=== PATIENT | male | born 1980 | race Caucasian/White ===

== ENCOUNTER 2023-08-26 18:05 | Observation (INO) | payer OTHER ==
[~2023-08-26] VITALS: Ht 190.5 cm; Wt 145.1 kg
[2023-08-26 18:44] VITALS: BP 149/98; PULSE 94; RESP 20; TEMP 98; O2SAT 98
[2023-08-26] MEDS ORDERED: FUROSEMIDE 40 MG/4 ML VIAL IVP ONE ×2 (19:55→23:35)
[2023-08-26 20:43] LABS: BASOPHILS % (AUTO) 0.3 % (0.0-2.0); EOSINOPHILS # (AUTO) 0.1 K/uL (0-0.4); EOSINOPHILS % (AUTO) 1.5 % (0.0-4.0); HEMATOCRIT 35.9 % (36-52); HEMOGLOBIN 11.6 g/dL (12.0-18.0); LYMPHOCYTES # (AUTO) 1.9 K/uL (2.0-11.5); LYMPHOCYTES % (AUTO) 25.8 % (20.5-51.1); MEAN CORPUSCULAR HEMOGLOBIN 32 pg (27-31); MEAN CORPUSCULAR HGB CONC 32 g/dL (33-37); MEAN CORPUSCULAR VOLUME 97.7 fL (80-94); MONOCYTES # (AUTO) 0.6 K/uL (0.8-1.0); MONOCYTES % (AUTO) 7.9 % (1.7-9.3); NEUTROPHILS # (AUTO) 4.9 K/uL (1.8-7.7); NEUTROPHILS % (AUTO) 64.5 % (42.2-75.2); PLATELET COUNT (AUTO) 270 K/uL (140-450); RED BLOOD CELL COUNT(AUTO) 3.68 MIL/uL (4.20-6.10); RED CELL DISTRIBUTION WIDTH 16.3 % (11.6-13.7); WHITE BLOOD COUNT (AUTO) 7.6 K/uL (4.8-10.8)
[2023-08-26 20:58] LABS: ALBUMIN 2.9 g/dL (3.4-5.0); ANION GAP 8.1 (8-16); CALCIUM 8.5 mg/dL (8.5-10.1); CARBON DIOXIDE 31.6 mmol/L (21-32); CREATININE 1.5 mg/dL (0.6-1.3); POTASSIUM 3.7 mmol/L (3.5-5.1); TOTAL BILIRUBIN 0.7 mg/dL (0.0-1.0)
[2023-08-26 21:23] LABS: INR 1.11 (0.8-1.2); PARTIAL THROMBOPLASTIN TIME 23.6 secs (22-35.6)
[2023-08-26 21:26] LABS: PROTHROMBIN TIME 11.6 secs (10.8-13.4)
[2023-08-26 22:58] LABS: BLOOD GAS BASE EXCESS 2.4 mmol/L (-2.0-2.0); BLOOD GAS HCO3 26.4 mmol/L (22-26); BLOOD GAS PCO2 38.9 mmHg (35-45); BLOOD GAS PO2 70.9 mmHg (75-100)
[2023-08-26 22:59] LABS: BLOOD GAS O2 SAT% 93.4 % (92.0-98.5)
[2023-08-27] VITALS (7 sets, daily range): BP systolic 139–150; BP diastolic 97–102; PULSE 85–111; RESP 18–22; TEMP 96.7–97.7; O2SAT 90–100
[2023-08-27] MEDS ORDERED: ZOLPIDEM 5 MG TAB PO PRN (02:20)
[2023-08-27] MEDS ORDERED: ONDANSETRON 4 MG/2 ML VIAL IVP PRN (02:20)
[2023-08-27] MEDS ORDERED: HYDROcodone/APAP 5/325 MG 1 TAB TAB PO PRN (02:20)
[2023-08-27] MEDS ORDERED: POTASSIUM CHLORIDE 10 MEQ TABER PO PRN (02:20)
[2023-08-27] MEDS ORDERED: LORazepam 1 MG TAB PO PRN (02:20)
[2023-08-27] MEDS ORDERED: MAG SULF 2000 MG/WATER PREMIX 50 ML IV PRN (02:20)
[2023-08-27] MEDS ORDERED: MORPHINE SULFATE 4 MG/ML SYR IVP PRN (02:20)
[2023-08-27] MEDS ORDERED: KCL 20 MEQ IN 100 mL PREMIX 200 ML IV PRN (02:20)
[2023-08-27] MEDS ORDERED: ACETAMINOPHEN 325 MG TAB PO PRN (02:20)
[2023-08-27] MEDS ORDERED: FUROSEMIDE 40 MG/4 ML VIAL IVP SCH (09:00)
[2023-08-27] MEDS: FUROSEMIDE 40 MG/4 ML VIAL IVP SCH ×2 (09:53→21:58)
[2023-08-27] MEDS ORDERED: hydrALAZINE 20 MG/ML VIAL IVP PRN (10:30)
[2023-08-27] MEDS: hydrALAZINE 25 MG TAB PO SCH ×2 (14:52→21:20)
[2023-08-28] VITALS: BP 144/101; PULSE 92; PULSE 98; RESP 18; TEMP 97.5; O2SAT 93
[2023-08-28 04:00] VITALS: BP 140/98; PULSE 122; PULSE 95; RESP 17; TEMP 98.5; O2SAT 95
[2023-08-28] MEDS: hydrALAZINE 25 MG TAB PO SCH ×3 (05:14→20:40)
[2023-08-28 06:49] LABS: BASOPHILS % (AUTO) 0.6 % (0.0-2.0); EOSINOPHILS # (AUTO) 0.1 K/uL (0-0.4); EOSINOPHILS % (AUTO) 2.3 % (0.0-4.0); HEMATOCRIT 39.4 % (36-52); HEMOGLOBIN 12.9 g/dL (12.0-18.0); LYMPHOCYTES # (AUTO) 1.6 K/uL (2.0-11.5); LYMPHOCYTES % (AUTO) 24.2 % (20.5-51.1); MEAN CORPUSCULAR HEMOGLOBIN 31 pg (27-31); MEAN CORPUSCULAR HGB CONC 33 g/dL (33-37); MEAN CORPUSCULAR VOLUME 96.1 fL (80-94); MONOCYTES # (AUTO) 0.6 K/uL (0.8-1.0); MONOCYTES % (AUTO) 8.5 % (1.7-9.3); NEUTROPHILS # (AUTO) 4.2 K/uL (1.8-7.7); NEUTROPHILS % (AUTO) 64.4 % (42.2-75.2); PLATELET COUNT (AUTO) 258 K/uL (140-450); RED CELL DISTRIBUTION WIDTH 16.3 % (11.6-13.7); WHITE BLOOD COUNT (AUTO) 6.5 K/uL (4.8-10.8)
[2023-08-28 07:24] LABS: ANION GAP 10.6 (8-16); CALCIUM 8.5 mg/dL (8.5-10.1); CARBON DIOXIDE 31.7 mmol/L (21-32); CREATININE 1.3 mg/dL (0.6-1.3); POTASSIUM 3.3 mmol/L (3.5-5.1)
[2023-08-28 08:00] VITALS: BP 149/92; PULSE 110; PULSE 113; PULSE 91; RESP 18; TEMP 96.4; O2SAT 91
[2023-08-28] MEDS: MAGNESIUM OXIDE 400 MG TAB PO SCH (09:26)
[2023-08-28] MEDS: FUROSEMIDE 40 MG/4 ML VIAL IVP SCH ×2 (09:26→20:54)
[2023-08-28 12:00] VITALS: BP 136/91; PULSE 101; PULSE 103; RESP 18; TEMP 96.9; O2SAT 95
[2023-08-28 16:00] VITALS: BP 131/95; PULSE 91; PULSE 95; RESP 18; TEMP 96.8; O2SAT 95
[2023-08-28 20:00] VITALS: BP 141/96; PULSE 103; PULSE 94; RESP 18; TEMP 97.4; O2SAT 94
[2023-08-29] VITALS: BP 131/89; PULSE 100; PULSE 104; RESP 17; TEMP 97.4; O2SAT 96
[2023-08-29 04:00] VITALS: BP 125/84; PULSE 66; PULSE 96; RESP 18; TEMP 97.4; O2SAT 94
[2023-08-29] MEDS: hydrALAZINE 25 MG TAB PO SCH (05:00)
[2023-08-29 06:45] LABS: ANION GAP 11.8 (8-16); CALCIUM 8.4 mg/dL (8.5-10.1); CARBON DIOXIDE 30.7 mmol/L (21-32); CREATININE 1.2 mg/dL (0.6-1.3); POTASSIUM 3.5 mmol/L (3.5-5.1)
[2023-08-29 07:20] LABS: BASOPHILS % (AUTO) 0.5 % (0.0-2.0); EOSINOPHILS # (AUTO) 0.1 K/uL (0-0.4); HEMATOCRIT 39.5 % (36-52); HEMOGLOBIN 12.8 g/dL (12.0-18.0); LYMPHOCYTES # (AUTO) 2.1 K/uL (2.0-11.5); LYMPHOCYTES % (AUTO) 31.5 % (20.5-51.1); MEAN CORPUSCULAR HEMOGLOBIN 31 pg (27-31); MEAN CORPUSCULAR HGB CONC 33 g/dL (33-37); MEAN CORPUSCULAR VOLUME 96.3 fL (80-94); MONOCYTES # (AUTO) 0.6 K/uL (0.8-1.0); NEUTROPHILS # (AUTO) 3.9 K/uL (1.8-7.7); PLATELET COUNT (AUTO) 302 K/uL (140-450); RED CELL DISTRIBUTION WIDTH 16.1 % (11.6-13.7); WHITE BLOOD COUNT (AUTO) 6.8 K/uL (4.8-10.8)
[2023-08-29 08:00] VITALS: BP 149/110; PULSE 101; PULSE 110; RESP 20; TEMP 97.4; O2SAT 94
[2023-08-29] MEDS: MAGNESIUM OXIDE 400 MG TAB PO SCH (08:18)
[2023-08-29] MEDS: FUROSEMIDE 40 MG/4 ML VIAL IVP SCH (08:27)
== END 2023-08-29 11:05 | disposition left against medical advice (07) ==
LOC: MED 18:05 → MTU 08-27 02:22
PROVIDERS: ADMIT Student in an Organized Health Care Education/Training Program; ATTEND Student in an Organized Health Care Education/Training Program
DX: I11.0 Hypertensive heart disease with heart failure (principal); I50.23 Acute on chronic systolic (congestive) heart failure; J96.01 Acute respiratory failure with hypoxia; E11.65 Type 2 diabetes mellitus with hyperglycemia; M79.89 Other specified soft tissue disorders; N17.9 Acute kidney failure, unspecified; D64.9 Anemia, unspecified; I42.8 Other cardiomyopathies; E66.9 Obesity, unspecified; Z79.899 Other long term (current) drug therapy
CPT/HCPCS: 36415; 36600; 71045; 80048; 80053; 82803; 83735; 83880; 84484; 85025; 85610; 85730; 87081; 93005; 94760; 96372; 96374; 96375; 96376; 99285; C8929; G0378; J0360; J1644; J1940; J3475; J3480; Q0092

== ENCOUNTER 2024-03-18 17:37 | Inpatient (IN) | payer OTHER ==
[~2024-03-18] VITALS: Ht 190.5 cm; Wt 145.6 kg
[2024-03-18 17:44] VITALS: BP 121/79; PULSE 89; RESP 20; TEMP 96.7; O2SAT 96
[2024-03-18 18:31] LABS: BASOPHILS # (AUTO) 0.1 K/uL (0.00-0.22); BASOPHILS % (AUTO) 0.9 % (0.0-2.0); EOSINOPHILS # (AUTO) 0.2 K/uL (0-0.4); EOSINOPHILS % (AUTO) 2.6 % (0.0-4.0); HEMATOCRIT 38.2 % (36-52); HEMOGLOBIN 12.6 g/dL (12.0-18.0); LYMPHOCYTES # (AUTO) 1.7 K/uL (2.0-11.5); LYMPHOCYTES % (AUTO) 28.7 % (20.5-51.1); MEAN CORPUSCULAR HEMOGLOBIN 33 pg (27-31); MEAN CORPUSCULAR HGB CONC 33 g/dL (33-37); MEAN CORPUSCULAR VOLUME 99.6 fL (80-94); MONOCYTES # (AUTO) 0.5 K/uL (0.8-1.0); MONOCYTES % (AUTO) 9.3 % (1.7-9.3); NEUTROPHILS # (AUTO) 3.4 K/uL (1.8-7.7); NEUTROPHILS % (AUTO) 58.5 % (42.2-75.2); PLATELET COUNT (AUTO) 196 K/uL (140-450); RED BLOOD CELL COUNT(AUTO) 3.84 MIL/uL (4.20-6.10); RED CELL DISTRIBUTION WIDTH 16.6 % (11.6-13.7); WHITE BLOOD COUNT (AUTO) 5.9 K/uL (4.8-10.8)
[2024-03-18 18:44] LABS: ANION GAP 8.2 (8-16); CALCIUM 7.9 mg/dL (8.5-10.1); CARBON DIOXIDE 30.2 mmol/L (21-32); CREATININE 1.3 mg/dL (0.6-1.3); POTASSIUM 4.4 mmol/L (3.5-5.1)
[2024-03-18 18:52] LABS: ALANINE AMINOTRANSFERASE 48 U/L (12-78); ALBUMIN 2.6 g/dL (3.4-5.0); ALKALINE PHOSPHATASE 94 U/L (50-136); ASPARTATE AMINOTRANSFERASE 21 U/L (15-37); BILIRUBIN,DIRECT 0.4 mg/dL (0.0-0.3); TOTAL BILIRUBIN 0.8 mg/dL (0.0-1.0); TOTAL PROTEIN, SERUM 6.7 g/dL (6.4-8.2)
[2024-03-18] MEDS ORDERED: LORazepam 1 MG TAB PO PRN (19:50)
[2024-03-18] MEDS: FUROSEMIDE 40 MG/4 ML VIAL IVP ONE (19:50)
[2024-03-18] MEDS ORDERED: ACETAMINOPHEN 325 MG TAB PO PRN (19:50)
[2024-03-18] MEDS ORDERED: HYDROcodone/APAP 5/325 MG 1 TAB TAB PO PRN (19:50)
[2024-03-18] MEDS ORDERED: KCL 20 MEQ IN 100 mL PREMIX 200 ML IV PRN (19:50)
[2024-03-18] MEDS ORDERED: ONDANSETRON 4 MG/2 ML VIAL IVP PRN (19:50)
[2024-03-18] MEDS ORDERED: ZOLPIDEM 5 MG TAB PO PRN (19:50)
[2024-03-18] MEDS ORDERED: MORPHINE SULFATE 4 MG/ML SYR IVP PRN (19:50)
[2024-03-18] MEDS ORDERED: MAG SULF 2000 MG/WATER PREMIX 50 ML IV PRN (19:50)
[2024-03-18] MEDS ORDERED: METF-350 PO (21:02)
[2024-03-18] MEDS ORDERED: SACU1TAB PO (21:03)
[2024-03-18] MEDS ORDERED: CARV25TA2 PO (21:03)
[2024-03-18] MEDS: FUROSEMIDE 40 MG/4 ML VIAL IVP SCH (21:04)
[2024-03-18 21:35] VITALS: BP 136/92; PULSE 75; PULSE 80; RESP 17; TEMP 97.5; O2SAT 99
[2024-03-19] VITALS: BP 133/101; PULSE 81; PULSE 97; PULSE 98; RESP 17; TEMP 97.1; TEMP 97.5; O2SAT 97; O2SAT 98
[2024-03-19 04:00] VITALS: BP 143/105; PULSE 74; PULSE 83; RESP 20; TEMP 97; O2SAT 91
[2024-03-19 06:18] LABS: BASOPHILS % (AUTO) 0.7 % (0.0-2.0); EOSINOPHILS # (AUTO) 0.1 K/uL (0-0.4); EOSINOPHILS % (AUTO) 2.1 % (0.0-4.0); HEMATOCRIT 37.7 % (36-52); HEMOGLOBIN 12.5 g/dL (12.0-18.0); LYMPHOCYTES # (AUTO) 2.2 K/uL (2.0-11.5); LYMPHOCYTES % (AUTO) 34.8 % (20.5-51.1); MEAN CORPUSCULAR HEMOGLOBIN 32 pg (27-31); MEAN CORPUSCULAR HGB CONC 33 g/dL (33-37); MEAN CORPUSCULAR VOLUME 98.2 fL (80-94); MONOCYTES # (AUTO) 0.6 K/uL (0.8-1.0); MONOCYTES % (AUTO) 9.2 % (1.7-9.3); NEUTROPHILS # (AUTO) 3.4 K/uL (1.8-7.7); NEUTROPHILS % (AUTO) 53.2 % (42.2-75.2); PLATELET COUNT (AUTO) 184 K/uL (140-450); RED BLOOD CELL COUNT(AUTO) 3.84 MIL/uL (4.20-6.10); RED CELL DISTRIBUTION WIDTH 15.9 % (11.6-13.7); WHITE BLOOD COUNT (AUTO) 6.3 K/uL (4.8-10.8)
[2024-03-19 06:37] LABS: CALCIUM 8.3 mg/dL (8.5-10.1); CREATININE 1.2 mg/dL (0.6-1.3); POTASSIUM 3.8 mmol/L (3.5-5.1)
[2024-03-19 06:47] LABS: ANION GAP 11.7 (8-16); CARBON DIOXIDE 29.1 mmol/L (21-32)
[2024-03-19 08:00] VITALS: BP 142/110; PULSE 67; PULSE 76; RESP 17; RESP 18; TEMP 97.4; O2SAT 97
[2024-03-19] MEDS: ENOXAPARIN 40 MG/0.4 ML SYR SUBQ SCH (09:38)
[2024-03-19 12:00] VITALS: BP 141/103; PULSE 76; PULSE 78; RESP 18; TEMP 97.5; O2SAT 96
[2024-03-19 16:00] VITALS: BP 137/98; PULSE 77; PULSE 91; RESP 18; TEMP 97.9; O2SAT 98
[2024-03-19 20:00] VITALS: BP 143/102; PULSE 77; RESP 18; TEMP 97.2; O2SAT 97
[2024-03-19] MEDS ORDERED: hydrALAZINE 25 MG TAB PO PRN (20:05)
[2024-03-19] MEDS: INSULIN LISPRO SLIDING SCALE 100 UNITS/ML VIAL SUBQ PRN (21:36)
[2024-03-19] MEDS: BLOOD GLUCOSE MONITORING 1 DEV DEV FS SCH (21:37)
[2024-03-20] VITALS (8 sets, daily range): BP systolic 112–143; BP diastolic 78–95; PULSE 66–83; RESP 17–18; TEMP 96.8–97.9; O2SAT 94–98
[2024-03-20 07:31] LABS: BASOPHILS % (AUTO) 0.6 % (0.0-2.0); EOSINOPHILS # (AUTO) 0.1 K/uL (0-0.4); HEMATOCRIT 37.9 % (36-52); HEMOGLOBIN 12.4 g/dL (12.0-18.0); LYMPHOCYTES # (AUTO) 2.3 K/uL (2.0-11.5); LYMPHOCYTES % (AUTO) 36.1 % (20.5-51.1); MEAN CORPUSCULAR HEMOGLOBIN 32 pg (27-31); MEAN CORPUSCULAR HGB CONC 33 g/dL (33-37); MEAN CORPUSCULAR VOLUME 98.4 fL (80-94); MONOCYTES # (AUTO) 0.6 K/uL (0.8-1.0); MONOCYTES % (AUTO) 8.6 % (1.7-9.3); NEUTROPHILS # (AUTO) 3.4 K/uL (1.8-7.7); NEUTROPHILS % (AUTO) 52.7 % (42.2-75.2); PLATELET COUNT (AUTO) 190 K/uL (140-450); RED BLOOD CELL COUNT(AUTO) 3.85 MIL/uL (4.20-6.10); RED CELL DISTRIBUTION WIDTH 16.6 % (11.6-13.7); WHITE BLOOD COUNT (AUTO) 6.4 K/uL (4.8-10.8)
[2024-03-20 07:39] LABS: POTASSIUM 3.5 mmol/L (3.5-5.1)
[2024-03-20 07:40] LABS: ANION GAP 9.3 (8-16); CALCIUM 8.4 mg/dL (8.5-10.1); CARBON DIOXIDE 31.2 mmol/L (21-32); CREATININE 1.3 mg/dL (0.6-1.3)
[2024-03-20] MEDS ORDERED: FERR-13 PO (11:48)
[2024-03-20] MEDS: carvediloL 12.5 MG TAB PO SCH (22:20)
[2024-03-20] MEDS: metFORMIN 850 MG TAB PO SCH (22:25)
[2024-03-21] VITALS (9 sets, daily range): BP systolic 114–138; BP diastolic 72–99; PULSE 68–98; RESP 17–19; TEMP 97–97.8; O2SAT 95–99
[2024-03-21 06:24] LABS: BASOPHILS % (AUTO) 0.4 % (0.0-2.0); EOSINOPHILS # (AUTO) 0.1 K/uL (0-0.4); EOSINOPHILS % (AUTO) 2.4 % (0.0-4.0); HEMATOCRIT 39.1 % (36-52); HEMOGLOBIN 12.9 g/dL (12.0-18.0); LYMPHOCYTES % (AUTO) 33.9 % (20.5-51.1); MEAN CORPUSCULAR HEMOGLOBIN 32 pg (27-31); MEAN CORPUSCULAR HGB CONC 33 g/dL (33-37); MEAN CORPUSCULAR VOLUME 97.4 fL (80-94); MONOCYTES # (AUTO) 0.6 K/uL (0.8-1.0); MONOCYTES % (AUTO) 9.6 % (1.7-9.3); NEUTROPHILS # (AUTO) 3.2 K/uL (1.8-7.7); NEUTROPHILS % (AUTO) 53.7 % (42.2-75.2); PLATELET COUNT (AUTO) 206 K/uL (140-450); RED BLOOD CELL COUNT(AUTO) 4.02 MIL/uL (4.20-6.10); RED CELL DISTRIBUTION WIDTH 16.3 % (11.6-13.7); WHITE BLOOD COUNT (AUTO) 5.9 K/uL (4.8-10.8)
[2024-03-21 06:57] LABS: ANION GAP 12.1 (8-16); CALCIUM 8.2 mg/dL (8.5-10.1); CARBON DIOXIDE 29.5 mmol/L (21-32); CREATININE 1.3 mg/dL (0.6-1.3); POTASSIUM 3.6 mmol/L (3.5-5.1)
[2024-03-21] MEDS: FERROUS SULFATE 325 MG TABEC PO SCH (08:57)
[2024-03-21] MEDS: ENTRESTO PO SCH (08:59)
[2024-03-21] MEDS: COMMUNICATION ORDER MC SCH (08:59)
[2024-03-21] MEDS: FUROSEMIDE 40 MG/4 ML VIAL IVP SCH (12:37)
[2024-03-21] MEDS: MAG SULF 2000 MG/WATER PREMIX 50 ML IV SCH (14:54)
[2024-03-22] VITALS: BP 141/91; PULSE 77; RESP 18; TEMP 97.4; O2SAT 95
[2024-03-22 07:03] LABS: ANION GAP 9.1 (8-16); CALCIUM 8.1 mg/dL (8.5-10.1); CARBON DIOXIDE 34.2 mmol/L (21-32); CREATININE 1.3 mg/dL (0.6-1.3); POTASSIUM 3.3 mmol/L (3.5-5.1)
[2024-03-22 07:22] LABS: BASOPHILS % (AUTO) 0.4 % (0.0-2.0); EOSINOPHILS # (AUTO) 0.2 K/uL (0-0.4); EOSINOPHILS % (AUTO) 2.8 % (0.0-4.0); HEMATOCRIT 39.6 % (36-52); MEAN CORPUSCULAR HEMOGLOBIN 32 pg (27-31); MEAN CORPUSCULAR HGB CONC 33 g/dL (33-37); MEAN CORPUSCULAR VOLUME 97.1 fL (80-94); MONOCYTES # (AUTO) 0.7 K/uL (0.8-1.0); MONOCYTES % (AUTO) 11.6 % (1.7-9.3); NEUTROPHILS # (AUTO) 3.2 K/uL (1.8-7.7); NEUTROPHILS % (AUTO) 52.2 % (42.2-75.2); PLATELET COUNT (AUTO) 209 K/uL (140-450); RED BLOOD CELL COUNT(AUTO) 4.08 MIL/uL (4.20-6.10); RED CELL DISTRIBUTION WIDTH 15.9 % (11.6-13.7); WHITE BLOOD COUNT (AUTO) 6.1 K/uL (4.8-10.8)
[2024-03-22 08:00] VITALS: BP 140/85; PULSE 69; RESP 18; TEMP 98.6; O2SAT 96
[2024-03-22] MEDS: POTASSIUM CHLORIDE 10 MEQ TABER PO PRN (09:23)
[2024-03-22] MEDS ORDERED: CARV25TA2 PO (14:22)
[2024-03-22] MEDS ORDERED: FURO-570 PO (14:22)
[2024-03-22] MEDS ORDERED: METF-350 PO (14:22)
[2024-03-22 14:31] VITALS: BP 124/55; PULSE 73; RESP 20; TEMP 98.6
== END 2024-03-22 16:40 | disposition home or self-care (01) | DRG 194 ==
LOC: MED 17:37 → MTU 19:46
PROVIDERS: ADMIT Hospitalist; ATTEND Hospitalist
DX: I11.0 Hypertensive heart disease with heart failure (principal); J96.01 Acute respiratory failure with hypoxia; N17.9 Acute kidney failure, unspecified; E43 Unspecified severe protein-calorie malnutrition; E66.01 Morbid (severe) obesity due to excess calories; E11.9 Type 2 diabetes mellitus without complications; I50.43 Acute on chronic combined systolic (congestive) and diastolic (congestive) heart failure; Z79.84 Long term (current) use of oral hypoglycemic drugs; Z79.899 Other long term (current) drug therapy; Z68.41 Body mass index [BMI] 40.0-44.9, adult
CPT/HCPCS: 36415; 71045; 80048; 80076; 82948; 83735; 83880; 84484; 85025; 87081; 93005; 96374; 99285; J1650; J1940; J3475; Q0092